=== PATIENT | female | born 1935 | race Caucasian/White ===

== ENCOUNTER 2017-12-01 10:36 | Outpatient (CLI) | payer OTHER, MEDICARE | END 2017-12-01 20:18 | disposition home or self-care (01) | LOC: SMA 10:36 | PROVIDERS: ATTEND Internal Medicine | DX: Z12.31 Encounter for screening mammogram for malignant neoplasm of breast (principal); I70.0 Atherosclerosis of aorta; J47.9 Bronchiectasis, uncomplicated; Z86.12 Personal history of poliomyelitis | CPT/HCPCS: 71046-TC; 77067 ==

== ENCOUNTER 2018-10-01 03:32 | Emergency (ER) | payer OTHER, MEDICARE ==
[~2018-10-01] VITALS: Ht 154.9 cm; Wt 60.3 kg
[2018-10-01 03:35] VITALS: BP_SYST 160
[2018-10-01] MEDS ORDERED: NACL 0.9% 1,000 ML IV ONE ×2 (06:15→08:10)
[2018-10-01 06:49] LABS: BASOPHILS % (AUTO) 0.5 % (0.0-2.0); EOSINOPHILS % (AUTO) 0.4 % (0.0-4.0); HEMATOCRIT 47.2 % (36-48); HEMOGLOBIN 15.9 g/dL (12.0-16.0); LYMPHOCYTES # (AUTO) 1.4 K/uL (1.0-5.5); LYMPHOCYTES % (AUTO) 15.6 % (20.5-51.5); MEAN CORPUSCULAR HEMOGLOBIN 32 pg (27-31); MEAN CORPUSCULAR HGB CONC 34 % (32-36); MEAN CORPUSCULAR VOLUME 96 fL (79.0-98.0); MONOCYTES # (AUTO) 0.4 K/uL (0.0-1.0); MONOCYTES % (AUTO) 4.3 % (1.7-9.3); NEUTROPHILS # (AUTO) 7.1 K/uL (1.8-7.7); NEUTROPHILS % (AUTO) 79.2 % (40.0-70.0); PLATELET COUNT (AUTO) 174 K/uL (130-430); RED BLOOD CELL COUNT(AUTO) 4.94 MIL/uL (4.2-6.2); WHITE BLOOD COUNT (AUTO) 8.9 K/uL (4.8-10.8)
[2018-10-01 07:00] LABS: ANION GAP 10 (5-15); CALCIUM 8.9 mg/dL (8.4-11.0); CHLORIDE 106 mmol/L (98-107); CREATININE 0.61 mg/dL (0.55-1.30); GLUCOSE 104 mg/dL (70-99); POTASSIUM 3.7 mmol/L (3.5-5.1); SODIUM SERUM 143 mmol/L (136-145); UREA NITROGEN, BLOOD 18 mg/dL (8-21)
[2018-10-01 07:09] LABS: ALANINE AMINOTRANSFERASE 14 U/L (12-78); ALBUMIN 3.6 g/dL (3.4-4.8); ASPARTATE AMINOTRANSFERASE 20 U/L (10-37); TOTAL BILIRUBIN 0.5 mg/dL (0.0-1.0)
[2018-10-01] MEDS ORDERED: NS 1000 ML IV.SOLN IV ONE (08:15)
[2018-10-01 08:18] LABS: BILIRUBIN,URINE NEGATIVE (NEGATIVE); BLOOD, URINE NEGATIVE (NEGATIVE); CLARITY/URINE CLEAR (CLEAR); COLOR,URINE YELLOW (YELLOW); GLUCOSE,URINE NEGATIVE (NEGATIVE); KETONES,URINE NEGATIVE (NEGATIVE); LEUKOCYTE ESTERASE ,URINE 2+ (NEGATIVE); NITRITE, URINE NEGATIVE (NEGATIVE); PROTEIN URINE NEGATIVE (NEGATIVE); UROBILINOGEN,URINE 0.2 (0.2-1.0)
[2018-10-01 08:25] LABS: BACTERIA,URINE FEW /HPF (None Seen); RBC,URINE 0-3 /HPF (0-3)
[2018-10-01 09:25] VITALS: BP_SYST 174
== END 2018-10-01 09:25 | disposition home or self-care (01) ==
LOC: SED 03:32
DX: R42 Dizziness and giddiness (principal)
CPT/HCPCS: 36415; 70450; 71045; 80053; 81000; 84484; 85025; 87086; 93005; 96360; 96361; 99284; J7030

== ENCOUNTER 2019-03-23 12:11 | Outpatient (CLI) | payer OTHER, MEDICARE | END 2019-03-23 20:23 | disposition home or self-care (01) | LOC: SRD 12:11 | PROVIDERS: ATTEND Internal Medicine | DX: M16.0 Bilateral primary osteoarthritis of hip (principal); M47.816 Spondylosis without myelopathy or radiculopathy, lumbar region | CPT/HCPCS: 73521 ==